=== PATIENT | female | born 1970 | race African-American/Black ===

== ENCOUNTER → 2019-07-09 | Emergency (ER) | payer MEDICAID ==
[~2019-07-09] VITALS: Ht 160 cm; Wt 58.1 kg
[~2019-07-09] MED LIST: LORazepam 0.5 MG TAB PO ONE
[2019-07-10 00:54] LABS: Basophils # (auto) 0 10 ^3/uL (0-0.2); Basophils % (auto) 0.6 % (0.0-2.0); Eosinophils # (auto) 0.1 10 ^3/uL (0-0.8); Eosinophils % (auto) 2.3 % (0.0-7.0); Hematocrit 37.7 % (36.0-46.0); Hemoglobin 12.6 g/dL (12.2-16.2); Lymphocytes # (auto) 1.2 10 ^3/uL (0.4-5.4); Lymphocytes % (auto) 24.7 % (10.0-50.0); Mean Corpuscular Hemoglobin 30.7 pg (28.0-32.0); Mean Corpuscular Hgb Conc. 33.4 g/dL (32.0-36.0); Mean Corpuscular Volume 91.7 fL (80.0-100.0); Monocytes # (auto) 0.4 10 ^3/uL (0-1.3); Monocytes % (auto) 8.6 % (0.0-12.0); Neutrophils # (auto) 3.1 10 ^3/uL (1.6-8.6); Neutrophils % (auto) 63.8 % (37.0-80.0); Nucleated Red Blood Cells % 0.1 %; Platelet Count (auto) 367 10^3/uL (140-450); Red Blood Cells 4.11 10^6/uL (4.0-5.20); Red Cell Distribution Width 12.5 % (11.8-14.3); White Blood Cell 4.9 10^3/uL (4.4-10.8)
[2019-07-10 01:07] LABS: INR 1.12 (0.9-1.15); Partial Thromboplastin Time 30.2 sec (23.64-32.05)
[2019-07-10 01:09] LABS: Chloride 107 mmol/L (98-107); Potassium 3.8 mmol/L (3.5-5.1); Sodium 137 mmol/L (136-145)
[2019-07-10 01:13] LABS: Albumin 3.6 g/dL (3.4-5.0); Anion Gap 5 (5-15); BUN/Creatinine Ratio 19.2; Blood Urea Nitrogen 15 mg/dL (7-18); Carbon Dioxide 25 mmol/L (21-32); GFR African American 102 mL/min; GFR Non-African American 84 mL/min; Glucose 90 mg/dL (74-106); Magnesium 1.7 mg/dL (1.6-2.6)
[2019-07-10 01:27] LABS: Alanine Aminotransferase 16 U/L (13-56); Alkaline Phosphatase 55 U/L (45-117); Aspartate Aminotransferase 12 U/L (15-37); Bilirubin, Total 0.4 mg/dL (0.2-1.0); Total Protein 7.4 g/dL (6.4-8.2)
[2019-07-10 02:05] VITALS: BP 92/57
== END | disposition home or self-care (01) ==
LOC: EDUNIT# 22:58 → EDBD 23:12 → EDSEX 23:12 → ER 23:16
DX: R57.0 Cardiogenic shock (principal); R42 Dizziness and giddiness; F41.9 Anxiety disorder, unspecified; Z95.0 Presence of cardiac pacemaker; Z88.8 Allergy status to other drugs, medicaments and biological substances
CPT/HCPCS: 36415; 80053; 83735; 83880; 84443; 84484; 85025; 85379; 85610; 85730

== ENCOUNTER 2020-02-13 17:03 | Inpatient (IN) | payer MEDICAID ==
[~2020-02-13] VITALS: Ht 160 cm; Wt 61.0 kg
[2020-02-13 17:53] LABS: Basophils # (auto) 0 10 ^3/uL (0-0.2); Basophils % (auto) 0.5 % (0.0-2.0); Eosinophils # (auto) 0.1 10 ^3/uL (0-0.8); Eosinophils % (auto) 3.2 % (0.0-7.0); Lymphocytes # (auto) 1.7 10 ^3/uL (0.4-5.4); Lymphocytes % (auto) 39.1 % (10.0-50.0); Mean Corpuscular Hemoglobin 30.7 pg (28.0-32.0); Mean Corpuscular Hgb Conc. 33.2 g/dL (32.0-36.0); Mean Corpuscular Volume 92.5 fL (80.0-100.0); Monocytes # (auto) 0.5 10 ^3/uL (0-1.3); Monocytes % (auto) 11.5 % (0.0-12.0); Neutrophils % (auto) 45.7 % (37.0-80.0); Platelet Count (auto) 319 10^3/uL (140-450); Red Blood Cells 3.89 10^6/uL (4.0-5.20); Red Cell Distribution Width 12.2 % (11.8-14.3); White Blood Cell 4.4 10^3/uL (4.4-10.8)
[2020-02-13 18:07] LABS: Albumin 3.8 g/dL (3.4-5.0); Calcium 8.3 mg/dL (8.5-10.1); Magnesium 2.2 mg/dL (1.6-2.6)
[2020-02-13 18:13] LABS: BUN/Creatinine Ratio 9.8; Bilirubin, Total 0.5 mg/dL (0.2-1.0); Total Protein 7.1 g/dL (6.4-8.2)
[2020-02-13] MEDS ORDERED: ONDANSETRON ODT 4 MG TAB PO PRN (20:15)
[2020-02-13] MEDS ORDERED: NITROGLYCERIN 0.4 MG SL TAB SL PRN (20:15)
[2020-02-13] MEDS ORDERED: MORPHINE SULF INJ 2 MG/ML SYRINGE 1ML IV PRN (20:15)
[2020-02-13] MEDS ORDERED: SPIR25TA8 PO (21:24)
[2020-02-13] MEDS ORDERED: CHOL20007 OR (21:24)
[2020-02-13] MEDS ORDERED: FLUT110A INH (21:24)
[2020-02-13] MEDS ORDERED: CARV25TA55 PO (21:24)
[2020-02-13] MEDS ORDERED: SIMV10TA84 PO (21:24)
[2020-02-13] MEDS ORDERED: ALBU108A5 IN (21:24)
[2020-02-13] MEDS ORDERED: SERDISK IN (21:24)
[2020-02-13] MEDS ORDERED: LORA-622 PO (21:24)
[2020-02-13] MEDS ORDERED: SACU1TAB PO (21:24)
[2020-02-13 21:55] VITALS: BP 100/65
[2020-02-13 22:10] VITALS: BP 100/65
--- NOTE | 2020-02-13 23:36 | NUR ---
CRITICAL LAB Received call from El in lab reporting a critical Troponin of 4.4. Will call Dr. Myrtle Ornelas's exchange to notify.
[2020-02-13] MEDS ORDERED: ATORVASTATIN 20 MG TAB PO SCH (23:45)
--- NOTE | 2020-02-13 23:46 | NUR ---
HOSPITALIST Received call from Dr. Ladd. Made aware of Critical Troponin of 4.4. No new orders at this time.
--- NOTE | 2020-02-14 00:28 | NUR ---
AT BEDSIDE Dr. Ladd at bedside discussing POC with patient. New orders received; will follow through.
[2020-02-14 05:00] VITALS: BP 101/70
[2020-02-14 06:36] LABS: Basophils # (auto) 0 10 ^3/uL (0-0.2); Basophils % (auto) 0.3 % (0.0-2.0); Eosinophils # (auto) 0.1 10 ^3/uL (0-0.8); Eosinophils % (auto) 2.2 % (0.0-7.0); Hematocrit 35.8 % (36.0-46.0); Hemoglobin 11.9 g/dL (12.2-16.2); Lymphocytes # (auto) 1.6 10 ^3/uL (0.4-5.4); Lymphocytes % (auto) 29.3 % (10.0-50.0); Mean Corpuscular Hemoglobin 30.8 pg (28.0-32.0); Mean Corpuscular Hgb Conc. 33.2 g/dL (32.0-36.0); Mean Corpuscular Volume 92.9 fL (80.0-100.0); Monocytes # (auto) 0.5 10 ^3/uL (0-1.3); Monocytes % (auto) 9.1 % (0.0-12.0); Neutrophils # (auto) 3.1 10 ^3/uL (1.6-8.6); Neutrophils % (auto) 59.1 % (37.0-80.0); Nucleated Red Blood Cells % 0.1 %; Platelet Count (auto) 308 10^3/uL (140-450); Red Blood Cells 3.86 10^6/uL (4.0-5.20); Red Cell Distribution Width 11.8 % (11.8-14.3); White Blood Cell 5.3 10^3/uL (4.4-10.8)
[2020-02-14 06:51] LABS: Albumin 3.6 g/dL (3.4-5.0); Calcium 8.9 mg/dL (8.5-10.1); Potassium 3.9 mmol/L (3.5-5.1)
[2020-02-14 06:59] LABS: BUN/Creatinine Ratio 10.1; Bilirubin, Total 0.6 mg/dL (0.2-1.0); Total Protein 6.7 g/dL (6.4-8.2)
--- NOTE | 2020-02-14 07:06 | NUR ---
CRITICAL LAB Received call from Coco in lab reporting Critical Troponin of 3.3; trending down from last draw which was 4.4. Dr. Ladd is aware of elevated Trops. cardiology consult and echo are pending for today.
--- NOTE | 2020-02-14 07:30 | NUR ---
Opening Shift Note Assumed patient care from NOC RN. Patient currently sitting up in bed for breakfast. No signs of distress at this time. Respirations even and unlabored. Safety precautions in place; call light is within reach. Will continue to monitor q 1hr and PRN.
[2020-02-14 09:00] VITALS: BP 97/61
[2020-02-14] MEDS ORDERED: ATORVASTATIN 20 MG TAB PO SCH (10:00)
[2020-02-14] MEDS ORDERED: ASPirin 81 mg TAB PO SCH (10:00)
[2020-02-14] MEDS ORDERED: ENOXAPARIN SOD 40 MG/0.4 ML SYRINGE SC SCH (10:00)
--- NOTE | 2020-02-14 10:22 | NUR ---
Zi Sebastian from [facility] at bedside for AICD Interrogation.
[2020-02-14 13:00] VITALS: BP 119/76
--- NOTE | 2020-02-14 13:14 | NUR ---
at Station Dr. Ornelas at station. Per Dr. Ornelas, wait for cardiology consult at this time. New orders received for Tylenol 1000mg q6hr PRN.
[2020-02-14] MEDS ORDERED: ACETAMINOPHEN 325 MG TAB PO PRN (13:15)
--- NOTE | 2020-02-14 13:24 | NUR ---
at Station Dr. Canales at station discussing chart/patient plan of care. No new orders at this time.
--- NOTE | 2020-02-14 16:32 | NUR ---
D/C Planning Per social service consult for home health safety eval and blood pressure checks. faxed clinical information to [facility]. Per Fernanda with [facility] [phone] patient has been accepted and service to start within 24-48hrs upon d/c day. Faxed clinical information to [facility].
[2020-02-14 16:57] VITALS: BP 109/68
[2020-02-14 17:00] VITALS: BP 109/68
--- NOTE | 2020-02-14 17:45 | NUR ---
Patient complaint Patient stated "I felt my heart beat fast-I got up and walked too fast to the bathroom." Patient heart rate currently 104bpm, no signs of distress, per patient, she felt better upon "sitting down and relaxing." No signs of distress at this time, respirations even and unlabored. Will continue to monitor.
--- NOTE | 2020-02-14 18:35 | NUR ---
Discharge Discharge instructions given as ordered. Encourage to follow up with PMD as instructed. All questions and concerns addressed. Patient verbalized understanding. Medication reconciliation form completed and copy given to patient. IV removed with catheter intact, pressure dressing applied. Telemetry unit returned to ICU. Patient taken to vehicle via wheelchair with all personal belongings, accompanied by staff and family member. No distress noted at time of departure. Patient denies dizziness, shortness of breath and chest pain at this time. Respirations even and unlabored. Patient provided with all discharge instructions, including contact information for primary, cardiology (Dr. Canales), and [facility] [place][Note 2]. All questions answered, patient verbalized understanding.
== END 2020-02-14 18:35 | disposition home health service (06) | DRG 201 ==
LOC: ER 17:03 → EDBD 17:03 → TELE 17:04 → TELE-WESTW 21:45
PROVIDERS: ADMIT Hospitalist; ATTEND Hospitalist
PROC: 4B02XTZ Measurement of Cardiac Defibrillator, External Approach (ICD-10-PCS; principal; 2020-02-13)
DX: I47.1 Supraventricular tachycardia (principal); I42.9 Cardiomyopathy, unspecified; R57.9 Shock, unspecified; I50.9 Heart failure, unspecified; I11.0 Hypertensive heart disease with heart failure; E78.5 Hyperlipidemia, unspecified; Z95.810 Presence of automatic (implantable) cardiac defibrillator; J44.9 Chronic obstructive pulmonary disease, unspecified
CPT/HCPCS: 36415; 71045; 80053; 83735; 84484; 85025; 93005; 93306; 96372; 99291; G0378

== ENCOUNTER 2020-02-18 09:55 | Inpatient (IN) | payer MEDICAID ==
[~2020-02-18] VITALS: Ht 160 cm; Wt 58.5 kg
[~2020-02-18 09:55] MED LIST changes: +ALBU108A5 IN; +CHOL20007 OR; +FLUT110A INH; +LORA-622 PO; -LORazepam 0.5 MG TAB PO ONE; +SERDISK IN; +SIMV10TA84 PO
[2020-02-18 10:51] LABS: Basophils # (auto) 0 10 ^3/uL (0-0.2); Basophils % (auto) 0.8 % (0.0-2.0); Eosinophils # (auto) 0.1 10 ^3/uL (0-0.8); Eosinophils % (auto) 1.2 % (0.0-7.0); Hematocrit 38.4 % (36.0-46.0); Hemoglobin 12.7 g/dL (12.2-16.2); Lymphocytes # (auto) 1.4 10 ^3/uL (0.4-5.4); Lymphocytes % (auto) 25.4 % (10.0-50.0); Mean Corpuscular Hemoglobin 30.4 pg (28.0-32.0); Mean Corpuscular Volume 92.1 fL (80.0-100.0); Monocytes # (auto) 0.5 10 ^3/uL (0-1.3); Monocytes % (auto) 8.6 % (0.0-12.0); Neutrophils # (auto) 3.5 10 ^3/uL (1.6-8.6); Nucleated Red Blood Cells % 0.2 %; Platelet Count (auto) 307 10^3/uL (140-450); Red Blood Cells 4.17 10^6/uL (4.0-5.20); Red Cell Distribution Width 11.8 % (11.8-14.3); White Blood Cell 5.4 10^3/uL (4.4-10.8)
[2020-02-18 11:15] LABS: INR 1.05 (0.9-1.15); Partial Thromboplastin Time 27.5 sec (23.0-31.2)
[2020-02-18 11:22] LABS: Potassium 3.4 mmol/L (3.5-5.1)
[2020-02-18 11:33] LABS: Albumin 3.9 g/dL (3.4-5.0); BUN/Creatinine Ratio 21.4; Bilirubin, Total 0.7 mg/dL (0.2-1.0); Calcium 9.1 mg/dL (8.5-10.1); Magnesium 1.9 mg/dL (1.6-2.6); Total Protein 7.5 g/dL (6.4-8.2)
[2020-02-18] MEDS ORDERED: MORPHINE SULF INJ 2 MG/ML SYRINGE 1ML IV PRN (16:30)
[2020-02-18] MEDS ORDERED: HYDROcodone-ACET 5/325MG TAB PO PRN (16:30)
[2020-02-18] MEDS ORDERED: NITROGLYCERIN 0.4 MG SL TAB SL PRN (16:30)
[2020-02-18] MEDS ORDERED: POTASSIUM EFFERVESENT TAB 25 MEQ PO ONE ×2 (16:45→23:45)
[2020-02-18] MEDS ORDERED: ENOXAPARIN SOD 60 MG/0.6 ML SYRINGE SC ONE (16:45)
[2020-02-18 20:20] LABS: Urine Bacteria MANY /hpf (None Seen); Urine Blood Negative /uL (Negative); Urine Mucus FEW (None Seen); Urine Specific Gravity 1.017 (1.001-1.035); Urine WBC 9 /hpf (0 - 5)
[2020-02-18 20:25] VITALS: BP 119/69
--- NOTE | 2020-02-18 20:25 | NUR ---
Telemetry admit from ER WILEY ISBELL admitted to Telemetry unit after SBAR received. Patient oriented to Jeana Moe, primary RN, unit, room, bed, and unit policies regarding patient care. Patient now on continuous telemetry monitoring, tele box #63 and telemetry reading on arrival to unit is SR 68 WITH PACEMAKER. Patient placed on bedside oxygen, weighed by bed scale and encouraged to call if she need something. All questions and concerns addressed, patient verbalized understanding.
--- NOTE | 2020-02-18 21:08 | NUR ---
MRSA SWAB SENT TO LAB
[2020-02-18 22:00] VITALS: BP 119/69
[2020-02-18] MEDS: METOPROLOL TARTRATE 25 MG TAB PO SCH (23:45)
[2020-02-18] MEDS ORDERED: MAGNESIUM SULFATE 1GM/100ML 100 ML IV ONE (23:45)
[2020-02-19] MEDS ORDERED: POTASSIUM CHL 20 Meq TABLET PO ONE (00:45)
[2020-02-19] MEDS ORDERED: POLYETHYLENE GLYCOL 17 GM PWDR PO ONE (00:45)
[2020-02-19] MEDS ORDERED: DOCUSATE SOD 100 MG CAP PO PRN (00:45)
--- NOTE | 2020-02-19 00:45 | NUR ---
FLAVIA Watson MD AT BEDSIDE. NEW ORDERS RECEIVED WILL BE CARRIED OUT.
--- NOTE | 2020-02-19 01:34 | NUR ---
PATIENT REQUESTS TO "HOLD OFF" ON MEDICATIONS THAT ARE NOW DUE. PATIENT STATES "I NEED A LITTLE MORE TIME, I NEED TO HEAR IT FROM GOD, ALL OF THIS IS SO NEW TO ME". EDUCATION PROVIDED TO PATIENT REGARDING MEDICATION AND WHY IT WAS PRESCRIBED TO PATIENT AND POSSIBLE SIDE EFFECTS. PATIENT STATED SHE WOULD USE CALL LIGHT WHEN SHE IS READY TO TAKE MEDICATIONS.
--- NOTE | 2020-02-19 01:57 | NUR ---
PATIENT REFUSED LOPRESSOR AND MAGNESIUM, PATIENT STATES THAT SHE WILL FEEL COMFORTABLE TAKING THEM UNTIL SHE SPEAKS WITH A ENVIRONMENTAL SERVICES SPECIALIST.
--- NOTE | 2020-02-19 03:45 | NUR ---
BOWEL MOVEMENT IN BED. COMPLETE LINEN CHANGE. PATIENT LEFT CLEAN AND DRY.
[2020-02-19 05:00] VITALS: BP 113/66
[2020-02-19 06:24] LABS: Potassium 4.4 mmol/L (3.5-5.1)
--- NOTE | 2020-02-19 07:15 | NUR ---
CLOSING NOTE- NOC SHIFT ENDORSED PATIENT CARE TO DAY SHIFT NURSE ELIZABETH BUTLER. PATIENT IS RESTING COMFORTABLE IN BED. NO S/SX OF DISTRESS, SOB OR PAIN.
--- NOTE | 2020-02-19 08:40 | NUR ---
Elevated Heart Rate Received call from [employer] regarding patient's heart rate at 175. Checked in on patient she was moving around in bed trying to have breakfast. She also stated that her defibrillator fired once. Once patient settled back in bed her heart rate went down to the 90's. Will continue to monitor.
[2020-02-19 09:00] VITALS: BP 116/72
--- NOTE | 2020-02-19 09:15 | NUR ---
ASSUMED CARE OF PATIENT PATIENT IS SITTING UP IN BED WATCHING TELEVISION, AWAKE AND ALERT. NO S/S OF DISTRESS, SOB, OR PAIN. UPDATED ON POC AND INSTRUCTED TO CALL FOR ASSISTANCE NEEDED, PATIENT VERBALIZED UNDERSTANDING. BED LOCKED IN LOWEST POSITION, SIDE RAILS UP X2, CALL LIGHT WITHIN REACH. SAFETY PRECAUTIONS IN PLACE. WILL CONTINUE TO MONITOR FOR CHANGES.
[2020-02-19] MEDS: FLOVENT 110 MCG IN SCH ×2 (10:00→22:00)
--- NOTE | 2020-02-19 10:05 | NUR ---
Assessment Patient is a 49-year-old female who is alert and oriented. Prior to admission patient rented a room and functioned independently. Per patient she will return home to her prior living arrangements post discharge and family will transport home. Per patient she does not use any medical equipment now. Advised patient there is a social service consult for home health safety evaluation. Informed patient she has the right to participate in all discharge planning. Patient verbalized understanding and agreed to discharge plan. Faxed clinical information to [facility] and [facility]. Per Fernanda with [facility] patient has been accepted and service to start within 24-48hrs upon discharge day. Addendum: 02/19/20 at 1005 by EMMANUEL RIDDLE Amended: Links added.
--- NOTE | 2020-02-19 10:20 | NUR ---
Obtain authorization from [facility] for home health [id number].
[2020-02-19] MEDS: METOPROLOL TARTRATE 25 MG TAB PO SCH (10:50)
--- NOTE | 2020-02-19 11:17 | NUR ---
SPOKE TO DR Myrtle MENCHACA INFORMED MD OF PATIENTS HEART RATE GOING INTO THE 170'S WITH MOVEMENT AND THAT PATIENT KEEPS STATING THE PACEMAKER IS FIRING. ALSO INFORMED MD OF NOTE THAT STATES [employer] WILL NOT INTEROGATE PACEMAKER UNLESS CONSULTED BY SAWYER HELPER. PER MD MENCHACA, CONTACT DR MOLINA AND MAKE HIM AWARE. ORDERS RECEIVED FOR EXTRA ONE TIME DOSE OF 12.5 MG METOPROLOL TO BE GIVEN NOW, FOR A TOTAL MORNING DOSE OF 25MG THEN TO RESUME AT 25MG BID. WILL FOLLOW THROUGH WITH ORDERS.
--- NOTE | 2020-02-19 11:21 | NUR ---
PAGED DR MOLINA REGARDING DEFIIBRILLATOR FIRING AND TO INFORM MD THAT PATIENTS HEART RATE GOES INTO THE 170'S WITH MOVEMENT.
[2020-02-19] MEDS ORDERED: METOPROLOL TARTRATE 25 MG TAB PO ONE (11:30)
[2020-02-19 13:30] VITALS: BP 113/73
--- NOTE | 2020-02-19 13:41 | NUR ---
DR MOLINA AT BEDSIDE
--- NOTE | 2020-02-19 13:42 | NUR ---
PAGED [employer] REGARDING STAT PACEMAKER INTERROGATION REQUESTED BY DR MOLINA
[2020-02-19 16:49] VITALS: BP 110/74
--- NOTE | 2020-02-19 17:00 | NUR ---
DR CORRIGAN AT BEDSIDE
[2020-02-19] MEDS ORDERED: DIGOXIN 0.125 MG TAB PO ONE (17:15)
[2020-02-19] MEDS ORDERED: SIMVASTATIN PO SCH (18:00)
--- NOTE | 2020-02-19 18:00 | NUR ---
SPOKE WITH DR Shirley MENCHACA PROVIDED MD WITH UPDATE. PER MD WILL COME SPEAK WITH PATIENT AND DISCHARGE TOMORROW AM. PATIENT MADE AWARE OF PENDING AM DISCHARGE.
--- NOTE | 2020-02-19 20:00 | NUR ---
Opening Shift Note Assumed care of patient, awake and alert. No S/S of distress/SOB or pain. Instructed on POC and to call for assist PRN, will continue to monitor for changes Q1hr and PRN.
[2020-02-19] MEDS: CARVEDILOL 12.5 MG TAB PO SCH (21:58)
[2020-02-19] MEDS ORDERED: METOPROLOL TARTRATE 25 MG TAB PO SCH (22:00)
[2020-02-19 23:33] VITALS: BP 101/60
[2020-02-20 05:59] VITALS: BP 107/74
[2020-02-20 08:00] VITALS: BP 101/60
--- NOTE | 2020-02-20 08:39 | NUR ---
HR IS 115, PT IS REFUSING TO TAKE CARVEDILOL MEDS STATED ( MY DOCTOR TAKE ME OFF IT 2 WEEKS A GO BECAUSE ITS CAUSING ME COUGH, I AM AFRAID TO TAKE IT, THE COUGH IS REALLY BAD, MAY BE THE DOCTOR CAN GIVE ME HALF OF IT> PAGE DR MENCHACA
--- NOTE | 2020-02-20 08:55 | NUR ---
DR PARTIDA CALLED BACK, MADE AWARE OF PATIENT'S CONCERS, SAID LET PT TAKE THE MEDS AND SEE WHAT WILL HAPPENED THEN LET HIM KNOW
[2020-02-20 09:00] VITALS: BP 97/64
--- NOTE | 2020-02-20 09:00 | NUR ---
PT MADE AWARE THAT DR MENCHACA ADVISING HER TO TAKE THE CARVEDILOL, PT STATED ( LET ME THINK ABOUT IT )
[2020-02-20] MEDS ORDERED: DIGOXIN 0.125 MG TAB PO SCH (10:00)
[2020-02-20] MEDS: FLOVENT 110 MCG IN SCH (10:00)
[2020-02-20] MEDS ORDERED: DIGO0.1238 PO (10:13)
[2020-02-20] MEDS ORDERED: CAR125T PO (10:13)
[2020-02-20 10:43] VITALS: BP 97/64
--- NOTE | 2020-02-20 11:57 | NUR ---
PAGE DR ANDERSON AGAIN TO OBTAIN DISCHARGE CLEARANCE
--- NOTE | 2020-02-20 12:30 | NUR ---
DR Shirley MENCHACA CALLED TO FOLLOW UP, MADE AWARE THAT I AM WAITING FOR DR FLANNERY TO CALL BACK AND OBTAIN HIS CLEARANCE, ALSO MADE AWARE THAT PT HR IS 100-115, SAID PT NEED TO TAKE HER MEDS
--- NOTE | 2020-02-20 12:55 | NUR ---
DR MOLINA CALLED BACK, MADE AWARE THAT PATIENT IS BEEN DISCHARGE HOME, AND WE NEED HIS CLEARNACE FOR PT TO GO HOME, DR MOLINA VERIFY IF EXPERIENCE ANY SCHOKS TODAY OR YESTERDAY , MADE AWARE NO, AND HER HR ON RESTING BETWEEN 100 TO 155, DR MOLINA INFORM ME THAT I NEED TO CALL DR CORRIGAN AND LET HIM KNOW IF HE WANT TO DO THE ABLATION HERE OR OUT PATIENT, PAGE DR CORRIGAN
[2020-02-20 13:00] VITALS: BP 110/70
--- NOTE | 2020-02-20 13:04 | NUR ---
PAGE DR CORRIGAN, SPOKE WITH CANDICE IN OFFICE AND TAHMINA IN [place] OFFICE, ABRIEF MESSAGE LEFT TO HAVE HIM CALL US BACK
--- NOTE | 2020-02-20 13:15 | NUR ---
PT MADE AWARE THAT SHE IS DISCHARGE HOME, AND I AM WAITING FOR DR CORRIGAN TO GET THE DISCHARGE CLEARANCE
--- NOTE | 2020-02-20 13:30 | NUR ---
HEAR RATE IS 71, PT APPEAR CALM AND RELAX, CONTINUE ON BED REST, VERY DISCOURAGED TO GET OUT OF BED, CONTINUE ENCOURAGING AND SUPPORTING PT
[2020-02-20] MEDS: CARVEDILOL 12.5 MG TAB PO SCH (13:47)
--- NOTE | 2020-02-20 14:50 | NUR ---
DR Shirley MENCHACA IS HERE FOLLOWING UP ON PT, MADE AWARE THAT THE HR IS 71, APPEAR STABLE, CONTINUE AWAITING FOR DR CORRIGAN TO CALL ME BACK, DR Shirley MENCHACA WILL TRY GET ON HOLD WITH HIM
--- NOTE | 2020-02-20 16:00 | NUR ---
DR FLANNERY CALLED SAID THAT HE ALREADY SPOKE WITH PT OVER THE PHONE AND SHE AGREE TO TAKE HER CARVEDILOL AND SHE CAN DISCHARGE HOME, PT MADE AWARE
[2020-02-20 16:55] VITALS: BP 119/72
--- NOTE | 2020-02-20 17:07 | NUR ---
ALL DISCHARGE INSTRUCTION GIVEN TO PT VERBALIS UNDERSTANDING, PT IS WAITING FOR HER DAUGHTER TO PICK HER UP
--- NOTE | 2020-02-20 18:10 | NUR ---
PT IS EATING DINNER, AND WAITING FOR HER DAUGHTER TO PICK HER UP, NO DISTRESS NOTED
--- NOTE | 2020-02-20 18:40 | NUR ---
PT ASSISTED BY NURSE AID IN THE WHEELCHAIR, PUSHING HER IN THE HALLWAYS, PT START TO HOLD ON LEFT UPPER CHEST, STATED IT WILL GOING TO FIRE > VERIFY WITH PT TO DESCRIBE IT, STATED I GET THIS WARM FEELING AND MY HEART START RACING> THE EPISODES WENT FOR 3 MINUTES, PT START TO FEEL WELL AFTER CARVEDILOL GIVEN TO HER. MADE AWARE TO COME TO ER IF SHE EXPERIENCE CHEST PAIN OR CALL 911, PT VERBALIS UNDERSTANDING
--- NOTE | 2020-02-20 18:45 | NUR ---
Discharge instructions given as ordered. Encourage to follow up with PMD as instructed. All questions and concerns addressed. Patient verbalized understanding. Medication reconciliation form completed and copy given to patient. Home medications held in Pharmacy returned to patient, and needed vaccines given. IV removed with catheter intact, pressure dressing applied. Telemetry unit returned to ICU. Patient taken to vehicle via wheelchair with all personal belongings, accompanied by staff and family member. No distress noted at time of departure.
--- NOTE | 2020-02-20 18:55 | NUR ---
RECEIVED A PHONE CALL FROM THE NURSE AIDE, THAT SHE IS IN THE PARKING LOT, PT IS UNABLE TO GET OUT OF THE WHEELCHAIR, WENT TO CHECK ON PT, PT IS HOLDING HER CHEST, STATED I NEED TO GO TO ER, I AM AFRAID > SUPPORTED PT, NURSE AIDE WHEELED TO ER, PAGE DR MENCHACA, THE TOWN CLERK MD, MADE AWARE OF WHAT HAPPENED, SAID THAT HE WILL LET DR Shirley MENCHACA KNOW, CHARGE NURSE JOHN MADE AWARE
--- NOTE | 2020-02-20 19:29 | NUR ---
JOHAN MCGRATHRECREATION DIRECTOR CALLED TO KNOW WHAT IS GOING ON, MADE AWARE OF PATIENT'S OF WHAT IS GOING ON WITH HER
== END 2020-02-20 18:44 | disposition home health service (06) | DRG 201 ==
LOC: EDBD 09:55 → ER 09:55 → TELE 16:30 → TELE-WESTW 20:25
PROVIDERS: ADMIT Internal Medicine; ATTEND Internal Medicine
DX: I47.1 Supraventricular tachycardia (principal); I42.9 Cardiomyopathy, unspecified; I50.22 Chronic systolic (congestive) heart failure; I24.8 Other forms of acute ischemic heart disease; R00.2 Palpitations; J44.9 Chronic obstructive pulmonary disease, unspecified; E87.6 Hypokalemia; E78.5 Hyperlipidemia, unspecified; I11.0 Hypertensive heart disease with heart failure; Z95.810 Presence of automatic (implantable) cardiac defibrillator; Z91.14 Patient's other noncompliance with medication regimen; Z91.19 Patient's noncompliance with other medical treatment and regimen; Z88.8 Allergy status to other drugs, medicaments and biological substances
CPT/HCPCS: 36415; 71045; 80053; 81001; 83735; 84132; 84443; 84484; 85025; 85610; 85730; 87081; 93005; 96372; G0378

== ENCOUNTER 2020-04-03 13:17 | Emergency (ER) | payer MEDICAID ==
[~2020-04-03] VITALS: Ht 160 cm; Wt 54.4 kg
[~2020-04-03 13:17] MED LIST changes: +CAR125T PO; +DIGO0.1238 PO
[2020-04-03 13:27] VITALS: BP 145/75
[2020-04-03 14:57] LABS: Basophils # (auto) 0 10 ^3/uL (0-0.2); Basophils % (auto) 0.7 % (0.0-2.0); Eosinophils # (auto) 0 10 ^3/uL (0-0.8); Eosinophils % (auto) 1.2 % (0.0-7.0); Hematocrit 40.6 % (36.0-46.0); Hemoglobin 13.2 g/dL (12.2-16.2); Lymphocytes # (auto) 0.9 10 ^3/uL (0.4-5.4); Lymphocytes % (auto) 26.7 % (10.0-50.0); Mean Corpuscular Hemoglobin 29.5 pg (28.0-32.0); Mean Corpuscular Hgb Conc. 32.6 g/dL (32.0-36.0); Mean Corpuscular Volume 90.6 fL (80.0-100.0); Monocytes # (auto) 0.3 10 ^3/uL (0-1.3); Monocytes % (auto) 9.1 % (0.0-12.0); Neutrophils # (auto) 2.2 10 ^3/uL (1.6-8.6); Neutrophils % (auto) 62.3 % (37.0-80.0); Nucleated Red Blood Cells % 0.1 %; Platelet Count (auto) 332 10^3/uL (140-450); Red Blood Cells 4.48 10^6/uL (4.0-5.20); Red Cell Distribution Width 12.4 % (11.8-14.3); White Blood Cell 3.5 10^3/uL (4.4-10.8)
[2020-04-03 15:03] LABS: Albumin 3.7 g/dL (3.4-5.0); Anion Gap 10 (5-15); Blood Urea Nitrogen 13 mg/dL (7-18); Carbon Dioxide 22 mmol/L (21-32); Chloride 106 mmol/L (98-107); Glucose 87 mg/dL (74-106); Sodium 138 mmol/L (136-145)
[2020-04-03 15:09] LABS: Alanine Aminotransferase 18 U/L (13-56); Alkaline Phosphatase 56 U/L (45-117); Aspartate Aminotransferase 18 U/L (15-37); BUN/Creatinine Ratio 14.8; Bilirubin, Total 0.8 mg/dL (0.2-1.0); GFR African American 89 mL/min; GFR Non-African American 73 mL/min; Total Protein 7.2 g/dL (6.4-8.2)
[2020-04-03] MEDS ORDERED: POTASSIUM CHL 20 Meq TABLET PO ONE (15:30)
== END 2020-04-03 21:47 | disposition home or self-care (01) ==
LOC: EDBD 13:17 → ER 13:17
DX: T82.9XXA Unspecified complication of cardiac and vascular prosthetic device, implant and graft, initial encounter (principal); E87.6 Hypokalemia; J45.909 Unspecified asthma, uncomplicated; E78.5 Hyperlipidemia, unspecified; R42 Dizziness and giddiness; R07.9 Chest pain, unspecified
CPT/HCPCS: 36415; 71045; 80053; 83735; 84484; 85025; 93005

== ENCOUNTER 2020-04-11 22:05 | Inpatient (IN) | payer MEDICAID ==
[~2020-04-11] VITALS: Ht 160 cm; Wt 48.5 kg
[2020-04-11 23:32] LABS: Basophils # (auto) 0 10 ^3/uL (0-0.2); Basophils % (auto) 0.6 % (0.0-2.0); Eosinophils # (auto) 0.1 10 ^3/uL (0-0.8); Eosinophils % (auto) 1.4 % (0.0-7.0); Hematocrit 41.6 % (36.0-46.0); Hemoglobin 13.8 g/dL (12.2-16.2); Lymphocytes # (auto) 1.1 10 ^3/uL (0.4-5.4); Lymphocytes % (auto) 17.8 % (10.0-50.0); Mean Corpuscular Hemoglobin 30.6 pg (28.0-32.0); Mean Corpuscular Hgb Conc. 33.1 g/dL (32.0-36.0); Mean Corpuscular Volume 92.4 fL (80.0-100.0); Monocytes # (auto) 0.5 10 ^3/uL (0-1.3); Monocytes % (auto) 8.6 % (0.0-12.0); Neutrophils # (auto) 4.5 10 ^3/uL (1.6-8.6); Neutrophils % (auto) 71.6 % (37.0-80.0); Nucleated Red Blood Cells % 0.2 %; Platelet Count (auto) 255 10^3/uL (140-450); Red Blood Cells 4.51 10^6/uL (4.0-5.20); Red Cell Distribution Width 12.5 % (11.8-14.3); White Blood Cell 6.2 10^3/uL (4.4-10.8)
[2020-04-11 23:51] LABS: INR 1.1 (0.9-1.15); Partial Thromboplastin Time 28.8 sec (23.0-31.2)
[2020-04-11 23:54] LABS: Albumin 3.6 g/dL (3.4-5.0); Calcium 8.9 mg/dL (8.5-10.1); Magnesium 1.7 mg/dL (1.6-2.6); Potassium 3.7 mmol/L (3.5-5.1)
[2020-04-12] LABS: BUN/Creatinine Ratio 22.1; Bilirubin, Total 1.2 mg/dL (0.2-1.0); Total Protein 7.6 g/dL (6.4-8.2)
[2020-04-12] MEDS ORDERED: CARVEDILOL 12.5 MG TAB PO ONE (02:00)
[2020-04-12] MEDS ORDERED: MORPHINE SULF INJ 2 MG/ML SYRINGE 1ML IV PRN (02:00)
[2020-04-12] MEDS ORDERED: NITROGLYCERIN 0.4 MG SL TAB SL PRN (02:00)
[2020-04-12 03:54] LABS: Basophils # (auto) 0 10 ^3/uL (0-0.2); Basophils % (auto) 0.3 % (0.0-2.0); Eosinophils # (auto) 0 10 ^3/uL (0-0.8); Eosinophils % (auto) 0.1 % (0.0-7.0); Hematocrit 40.4 % (36.0-46.0); Hemoglobin 13.4 g/dL (12.2-16.2); Lymphocytes # (auto) 0.7 10 ^3/uL (0.4-5.4); Lymphocytes % (auto) 10.5 % (10.0-50.0); Mean Corpuscular Hemoglobin 30.6 pg (28.0-32.0); Mean Corpuscular Hgb Conc. 33.3 g/dL (32.0-36.0); Monocytes # (auto) 0.2 10 ^3/uL (0-1.3); Monocytes % (auto) 3.6 % (0.0-12.0); Neutrophils # (auto) 5.5 10 ^3/uL (1.6-8.6); Neutrophils % (auto) 85.5 % (37.0-80.0); Nucleated Red Blood Cells % 0.1 %; Platelet Count (auto) 258 10^3/uL (140-450); Red Blood Cells 4.39 10^6/uL (4.0-5.20); Red Cell Distribution Width 12.7 % (11.8-14.3); White Blood Cell 6.4 10^3/uL (4.4-10.8)
[2020-04-12 04:14] LABS: Calcium 9.5 mg/dL (8.5-10.1); Potassium 3.9 mmol/L (3.5-5.1)
[2020-04-12 04:20] LABS: BUN/Creatinine Ratio 23.1
[2020-04-12] MEDS: ENOXAPARIN SOD 40 MG/0.4 ML SYRINGE SC SCH (10:14)
[2020-04-12] MEDS: ATORVASTATIN 20 MG TAB PO SCH (10:14)
[2020-04-12] MEDS: ASPirin 81 mg TAB PO SCH (10:14)
[2020-04-12] MEDS: CARVEDILOL 12.5 MG TAB PO SCH ×3 (10:14→22:00)
[2020-04-12] MEDS ORDERED: IOHEXOL 350 MG/ML 100ML IJ ONE ×2 (10:17→10:26)
[2020-04-12] MEDS ORDERED: ALBUTEROL SULF HFA 90MCG INH 200DOSE IN PRN (11:15)
[2020-04-12] MEDS: PRAVASTATIN SODIUM 20 MG TAB PO SCH (20:00)
[2020-04-12] MEDS: FLUTICASONE PROPIONATE 110 MCG IN SCH (22:00)
[2020-04-13] MEDS: ASPirin 81 mg TAB PO SCH (09:48)
[2020-04-13] MEDS: LORATADINE 10 MG TAB PO SCH (09:48)
[2020-04-13] MEDS: CARVEDILOL 12.5 MG TAB PO SCH ×4 (09:49→21:54)
[2020-04-13] MEDS: ATORVASTATIN 20 MG TAB PO SCH (09:50)
[2020-04-13] MEDS: CHOLECALCIFEROL (VITD3) 2,000 UNIT CAP PO SCH (09:50)
[2020-04-13] MEDS: ENOXAPARIN SOD 40 MG/0.4 ML SYRINGE SC SCH (09:51)
[2020-04-13] MEDS: FLUTICASONE PROPIONATE 110 MCG IN SCH ×2 (10:00→22:00)
[2020-04-13] MEDS: DIGOXIN 0.125 MG TAB PO SCH (10:00)
[2020-04-13 14:04] LABS: INR 1.11 (0.9-1.15)
[2020-04-13] MEDS: PRAVASTATIN SODIUM 20 MG TAB PO SCH (18:00)
[2020-04-13] MEDS: AMIODARONE HCL 200 MG TAB PO SCH (21:55)
[2020-04-14 05:51] LABS: Basophils # (auto) 0 10 ^3/uL (0-0.2); Basophils % (auto) 0.9 % (0.0-2.0); Eosinophils # (auto) 0.3 10 ^3/uL (0-0.8); Eosinophils % (auto) 5.2 % (0.0-7.0); Hematocrit 40.4 % (36.0-46.0); Hemoglobin 13.6 g/dL (12.2-16.2); Lymphocytes # (auto) 1.2 10 ^3/uL (0.4-5.4); Lymphocytes % (auto) 24.2 % (10.0-50.0); Mean Corpuscular Hemoglobin 30.6 pg (28.0-32.0); Mean Corpuscular Hgb Conc. 33.6 g/dL (32.0-36.0); Monocytes # (auto) 0.5 10 ^3/uL (0-1.3); Monocytes % (auto) 10.6 % (0.0-12.0); Neutrophils % (auto) 59.1 % (37.0-80.0); Nucleated Red Blood Cells % 0.1 %; Platelet Count (auto) 245 10^3/uL (140-450); Red Blood Cells 4.44 10^6/uL (4.0-5.20); Red Cell Distribution Width 12.3 % (11.8-14.3); White Blood Cell 5.2 10^3/uL (4.4-10.8)
[2020-04-14 06:10] LABS: Potassium 3.6 mmol/L (3.5-5.1)
[2020-04-14 06:12] LABS: BUN/Creatinine Ratio 14.7; Calcium 9.6 mg/dL (8.5-10.1); Magnesium 1.9 mg/dL (1.6-2.6)
[2020-04-14] MEDS ORDERED: CARVEDILOL 12.5 MG TAB ONE (08:03)
[2020-04-14] MEDS: LORATADINE 10 MG TAB PO SCH (08:15)
[2020-04-14] MEDS: FLUTICASONE PROPIONATE 110 MCG IN SCH (08:15)
[2020-04-14] MEDS: ASPirin 81 mg TAB PO SCH (08:15)
[2020-04-14] MEDS: ENOXAPARIN SOD 40 MG/0.4 ML SYRINGE SC SCH (08:16)
[2020-04-14] MEDS: DIGOXIN 0.125 MG TAB PO SCH (08:16)
[2020-04-14] MEDS: ATORVASTATIN 20 MG TAB PO SCH (08:16)
[2020-04-14] MEDS: CARVEDILOL 12.5 MG TAB PO SCH ×2 (08:16)
[2020-04-14] MEDS: AMIODARONE HCL 200 MG TAB PO SCH (08:16)
[2020-04-14] MEDS: CHOLECALCIFEROL (VITD3) 2,000 UNIT CAP PO SCH (08:16)
[2020-04-14 09:43] LABS: Free T3 1.84 pg/mL (2.3-4.2); Free T4 (Free Thyroxine) 0.92 ng/dL (0.89-1.76)
[2020-04-14 10:16] VITALS: BP 100/62
== END 2020-04-14 10:56 | disposition home or self-care (01) | DRG 201 ==
LOC: ER 22:05 → EDBD 22:05 → TELE 22:06
PROVIDERS: ADMIT Hospitalist; ATTEND Hospitalist
PROC: 4B02XTZ Measurement of Cardiac Defibrillator, External Approach (ICD-10-PCS; principal; 2020-04-12)
DX: I47.1 Supraventricular tachycardia (principal); I48.92 Unspecified atrial flutter; J45.909 Unspecified asthma, uncomplicated; I42.9 Cardiomyopathy, unspecified; I50.22 Chronic systolic (congestive) heart failure; E78.5 Hyperlipidemia, unspecified; I11.0 Hypertensive heart disease with heart failure; Z95.810 Presence of automatic (implantable) cardiac defibrillator; Z88.8 Allergy status to other drugs, medicaments and biological substances; Z20.828 Contact with and (suspected) exposure to other viral communicable diseases; I24.8 Other forms of acute ischemic heart disease
CPT/HCPCS: 36415; 71045; 80048; 80053; 80061; 83735; 83880; 84439; 84443; 84481; 84484; 85025; 85379; 85610; 85730; 87426; G0378

== ENCOUNTER 2020-06-14 11:15 | Emergency (ER) | payer MEDICAID ==
[~2020-06-14] VITALS: Ht 160 cm; Wt 49.9 kg
[~2020-06-14 11:15] MED LIST changes: -DIGO0.1238 PO; +DIGO1TAB48 PO
[2020-06-14 13:29] LABS: Basophils # (auto) 0 10 ^3/uL (0-0.2); Hemoglobin 11.9 g/dL (12.2-16.2); Lymphocytes # (auto) 0.5 10 ^3/uL (0.4-5.4); Mean Corpuscular Hemoglobin 29.9 pg (28.0-32.0)
[2020-06-14 13:31] LABS: Basophils % (auto) 0.6 % (0.0-2.0); Eosinophils # (auto) 0.1 10 ^3/uL (0-0.8); Eosinophils % (auto) 1.5 % (0.0-7.0); Hematocrit 36.8 % (36.0-46.0); Lymphocytes % (auto) 11.5 % (10.0-50.0); Mean Corpuscular Hgb Conc. 32.5 g/dL (32.0-36.0); Monocytes # (auto) 0.1 10 ^3/uL (0-1.3); Monocytes % (auto) 1.8 % (0.0-12.0); Neutrophils # (auto) 3.9 10 ^3/uL (1.6-8.6); Neutrophils % (auto) 84.6 % (37.0-80.0); Nucleated Red Blood Cells % 0.1 %; Red Cell Distribution Width 15.5 % (11.8-14.3); White Blood Cell 4.6 10^3/uL (4.4-10.8)
[2020-06-14 14:09] LABS: Urine Bacteria FEW /hpf (None Seen); Urine Blood Negative /uL (Negative); Urine Mucus FEW (None Seen); Urine WBC 1 /hpf (0 - 5)
[2020-06-14 14:14] LABS: Alanine Aminotransferase 14 U/L (13-56); Anion Gap 8 (5-15); Aspartate Aminotransferase 14 U/L (15-37); Blood Urea Nitrogen 8 mg/dL (7-18); Carbon Dioxide 25 mmol/L (21-32); Chloride 107 mmol/L (98-107); Glucose 87 mg/dL (74-106); Magnesium 1.8 mg/dL (1.6-2.6); Potassium 3.1 mmol/L (3.5-5.1); Sodium 140 mmol/L (136-145)
[2020-06-14 14:26] LABS: Alkaline Phosphatase 106 U/L (45-117); Bilirubin, Total 0.4 mg/dL (0.2-1.0); GFR African American 182 mL/min; GFR Non-African American 150 mL/min; Total Protein 7.4 g/dL (6.4-8.2)
[2020-06-14] MEDS ORDERED: AZITHROMYCIN 500MG/ 250ML 250 ML IV ONE (17:00)
[2020-06-14] MEDS ORDERED: cefTRIAXone 1GM/50ML D5W 50 ML IV ONE (17:00)
[2020-06-14 21:33] VITALS: BP 106/74
== END 2020-06-14 22:19 | disposition home or self-care (01) ==
LOC: ER 11:15 → EDBD 11:15 → ER 22:19
DX: J18.1 Lobar pneumonia, unspecified organism (principal); R07.89 Other chest pain; E44.1 Mild protein-calorie malnutrition; R63.4 Abnormal weight loss; J45.909 Unspecified asthma, uncomplicated; K21.9 Gastro-esophageal reflux disease without esophagitis; Z68.1 Body mass index [BMI] 19.9 or less, adult; Z20.822 Contact with and (suspected) exposure to COVID-19
CPT/HCPCS: 36415; 71045; 80053; 80162; 81001; 83735; 84443; 84484; 85025; 87040; 87426; 93005; 96365; 96366; 96368; 99285; C9803; J0456; J0696; U0003

== ENCOUNTER 2020-06-14 23:38 | Emergency (ER) | payer MEDICAID ==
[~2020-06-14] VITALS: Ht 160 cm; Wt 47.6 kg
[2020-06-15 00:16] VITALS: BP 113/77
[2020-06-15 00:57] LABS: Monocytes # (auto) 0.4 10 ^3/uL (0-1.3); White Blood Cell 6.4 10^3/uL (4.4-10.8)
[2020-06-15 00:59] LABS: Basophils % (auto) 0.8 % (0.0-2.0); Neutrophils # (auto) 4.9 10 ^3/uL (1.6-8.6)
[2020-06-15] MEDS ORDERED: POTASSIUM EFFERVESENT TAB 25 MEQ PO ONE (01:00)
[2020-06-15 01:03] LABS: Alanine Aminotransferase 12 U/L (13-56); Anion Gap 13 (5-15); Aspartate Aminotransferase 18 U/L (15-37); BUN/Creatinine Ratio 11.1; Blood Urea Nitrogen 5 mg/dL (7-18); Calcium 9.1 mg/dL (8.5-10.1); Carbon Dioxide 19 mmol/L (21-32); Chloride 109 mmol/L (98-107); GFR African American 191 mL/min; GFR Non-African American 158 mL/min; Glucose 90 mg/dL (74-106); Magnesium 1.8 mg/dL (1.6-2.6); Sodium 141 mmol/L (136-145)
[2020-06-15 01:08] LABS: Alkaline Phosphatase 102 U/L (45-117); Bilirubin, Total 0.5 mg/dL (0.2-1.0); Total Protein 7.2 g/dL (6.4-8.2)
[2020-06-15 01:09] LABS: Mean Corpuscular Hemoglobin 30.1 pg (28.0-32.0); Mean Corpuscular Hgb Conc. 32.9 g/dL (32.0-36.0); Mean Corpuscular Volume 91.5 fL (80.0-100.0); Neutrophils % (auto) 76.2 % (37.0-80.0); Red Cell Distribution Width 15.3 % (11.8-14.3)
[2020-06-15 01:10] LABS: Basophils # (auto) 0 10 ^3/uL (0-0.2); Eosinophils # (auto) 0 10 ^3/uL (0-0.8); Eosinophils % (auto) 0.7 % (0.0-7.0); Hematocrit 35.5 % (36.0-46.0); Hemoglobin 11.7 g/dL (12.2-16.2); Lymphocytes % (auto) 15.4 % (10.0-50.0); Monocytes % (auto) 6.9 % (0.0-12.0); Nucleated Red Blood Cells % 0.1 %; Platelet Count (auto) 657 10^3/uL (140-450); Red Blood Cells 3.88 10^6/uL (4.0-5.20)
[2020-06-15 01:49] LABS: INR 1.1 (0.9-1.15); Partial Thromboplastin Time 29.9 sec (23.0-31.2)
== END 2020-06-15 04:30 | disposition home or self-care (01) ==
LOC: EDBD 23:38 → ER 23:40
DX: J18.1 Lobar pneumonia, unspecified organism (principal); F44.9 Dissociative and conversion disorder, unspecified; E87.6 Hypokalemia; R07.89 Other chest pain; J45.909 Unspecified asthma, uncomplicated; K21.9 Gastro-esophageal reflux disease without esophagitis; E78.5 Hyperlipidemia, unspecified
CPT/HCPCS: 36415; 80053; 80320; 83735; 83880; 84443; 84484; 85025; 85610; 85730; 93005